=== PATIENT | female | born 1945 ===

== ENCOUNTER 2017-12-15 09:34 | Emergency (ER) | payer MEDICARE, OTHER ==
[2017-12-15 09:48] VITALS: TEMP 98; O2SAT 96; BMI 27.4
--- NOTE | 2017-12-15 10:36 | ED PDOC ---
Arrival/HPI - General Chief Complaint: Abdominal Pain Time Seen by Provider: 12/15/17 10:27 Historian: Patient - History of Present Illness Narrative History of Present Illness (Text): 12/15/17 10:25 Prachi De La Cruz is a 72 Year old female, whose past medical history includes hypertension, who presents to the Emergency department complaining of chest pain and shortness of breath for a couple of days. Patients family reports patient has been coughing with congestion and sputum. Patient denies headache, fever, chills, back pain, nausea, vomiting, diarrhea, abdominal pain, lower extremity pain/swelling, recent travel, recent surgery, or other complaints. PMD: Dr. Souza Time/Duration: < week Symptom Onset: Gradual Symptom Course: Worsening Context: Home Past Medical History - Provider Review Nursing Documentation Reviewed: Yes - Infectious Disease Hx of Infectious Diseases: None - Reproductive Menopause: Yes - Cardiac Hx Hypertension: Yes - Pulmonary Hx Respiratory Disorders: No - Psychiatric Hx Substance Use: No - Anesthesia Hx Anesthesia: No Family/Social History - Physician Review Nursing Documentation Reviewed: Yes Family/Social History: Unknown Family HX Smoking Status: Former Smoker Hx Alcohol Use: No Hx Substance Use: No Allergies/Home Meds Allergies/Adverse Reactions: Allergies ampicillin Allergy (Verified 12/15/17 09:49) RASH sesonal Allergy (Uncoded 12/15/17 09:49) CONGESTION Home Medications: Home Meds Medication Instructions Recorded Confirmed Losartan [Cozaar] 25 mg PO DAILY 12/15/17 12/15/17 Review of Systems - Physician Review All systems were reviewed & negative as marked: Yes - Review of Systems Constitutional: absent: Fevers ENT: Sinus Congestion Respiratory: SOB, Cough, Sputum Cardiovascular: Chest Pain Neurological: absent: Headache Physical Exam Vital Signs Reviewed: Yes Vital Signs Temp Pulse Resp BP Pulse Ox 12/15/17 09:47 98.0 F 73 18 153/79 H 96 Temperature: Afebrile Blood Pressure: Hypertensive Pulse: Regular Respiratory Rate: Normal Appearance: Positive for: Well-Appearing, Non-Toxic, Comfortable Pain Distress: None Mental Status: Positive for: Alert and Oriented X 3 - Systems Exam Head: Present: Atraumatic, Normocephalic Pupils: Present: PERRL Extroacular Muscles: Present: EOMI Conjunctiva: Present: Normal Neck: Present: Normal Range of Motion Respiratory/Chest: Present: Clear to Auscultation, Good Air Exchange, Other ( right side reproducible chest discomfort ). No: Respiratory Distress, Accessory Muscle Use, Wheezes, Rales, Rhonchi Cardiovascular: Present: Regular Rate and Rhythm, Normal S1, S2. No: Murmurs Abdomen: Present: Normal Bowel Sounds. No: Tenderness, Distention, Peritoneal Signs, Rebound, Guarding Neurological: Present: GCS=15, CN II-XII Intact, Speech Normal Skin: Present: Warm, Dry, Normal Color. No: Rashes Psychiatric: Present: Alert, Oriented x 3, Normal Insight, Normal Concentration Medical Decision Making ED Course and Treatment: 12/15/17 Impression: 72 Year old female with right side reproducible chest discomfort on palpation. Clear lungs and heart Complaining of shortness of breath, cough, chest pain, and sinus congestion with sputum. Plan: -- EKG -- Chest X-ray -- Reassess and disposition Progress Notes: 12/15/17 11:10 Chest X-ray: Creator : Ethan Kearns MD FINDINGS: LUNGS: No active pulmonary disease. PLEURA: Minimal blunting of right costophrenic angle may reflect small pleural effusion or chronic pleural thickening. CARDIOVASCULAR: Normal. OSSEOUS STRUCTURES: No significant abnormalities. VISUALIZED UPPER ABDOMEN: Normal. OTHER FINDINGS: None. IMPRESSION: No active disease. - RAD Interpretation Radiology Orders: 12/15/17 10:35 CHEST PORTABLE [RAD] Stat Clinical Quality Rn: Radiologist - EKG Interpretation Interpreted by ED Physician: Yes Type: 12 lead EKG - Scribe Statement The provider has reviewed the documentation as recorded by the Cataibe Keira Mclaughlin Provider Scribe Attestation: All medical record entries made by the Cataibe were at my direction and personally dictated by me. I have reviewed the chart and agree that the record accurately reflects my personal performance of the history, physical exam, medical decision making, and the department course for this patient. I have also personally directed, reviewed, and agree with the discharge instructions and disposition. Disposition/Present on Arrival - Present on Arrival Any Indicators Present on Arrival: No History of DVT/PE: No History of Uncontrolled Diabetes: No Urinary Catheter: No History of Decub. Ulcer: No History Surgical Site Infection Following: None - Disposition Have Diagnosis and Disposition been Completed?: Yes Diagnosis: Chest wall pain, Congestion of upper airway Disposition: HOME/ ROUTINE Disposition Time: 12:15 Patient Plan: Discharge Condition: STABLE Discharge Instructions (ExitCare): Chest Pain (ED) Prescriptions: Promethazine DM [Phenergan DM Syrup] 5 ml PO TID PRN #120 ml PRN Reason: Cough And Congestion Referrals: Jessica Upton MD [Primary Care Provider] - Follow up with primary Forms: [employer] (E[place]ian)
--- NOTE | 2017-12-15 11:15 | RAD ---
HISTORY: cough COMPARISON: No prior. FINDINGS: LUNGS: No active pulmonary disease. PLEURA: Minimal blunting of right costophrenic angle may reflect small pleural effusion or chronic pleural thickening. CARDIOVASCULAR: Normal. OSSEOUS STRUCTURES: No significant abnormalities. VISUALIZED UPPER ABDOMEN: Normal. OTHER FINDINGS: None. IMPRESSION: No active disease.
[2017-12-15 12:32] VITALS: BP 153/64; PULSE 76; RESP 22
--- NOTE | 2017-12-15 16:10 | CARD ---
APPROVED REPORT EKG Measurement Heart [id number] <Conclusion> Sinus rhythm with 1st degree AV block Low voltage QRS Borderline ECG
== END 2017-12-15 12:27 | disposition home or self-care (01) ==
LOC: ED 09:34
DX: R07.89 Other chest pain (principal); R09.81 Nasal congestion; Z87.891 Personal history of nicotine dependence; I10 Essential (primary) hypertension

== ENCOUNTER 2018-12-22 10:48 | Outpatient (CLI) | payer MEDICARE, OTHER | END 2018-12-22 10:49 | disposition home or self-care (01) | LOC: CARDIO 10:48 ==